=== PATIENT | female | born 1975 | race Caucasian/White ===

== ENCOUNTER 2023-11-17 14:12 | Emergency (ER) | payer BC, SELFPAY ==
[2023-11-17 14:18] VITALS: BP 140/92
--- NOTE | 2023-11-17 17:05 | ED.SKININJ ---
HPI-Injury
General
Chief Complaint: Skin Problem
Source: patient
Exam Limitations: none
Time Seen by Provider: 11/17/23 16:59
Travel History
Have you had any contact with someone who has COVID-19?: No
Do you have any symptoms of coronavirus? Fever > 100 degrees, chills, cough, shortness of breath, sore throat, loss of taste or smell, muscle aches, or headache?: No
History of Present Illness-Injury
Initial Injury comments:
48-year-old female presents with tingling and numb feeling to the right side of the face that started this morning. This is very reminiscent of prior shingles attack she had in the past. She denies any eye discomfort or difficulty seeing that is
new. No significant headache. No unilateral numbness or weakness otherwise. She is healthy otherwise. I was asked to go to the room to evaluate the patient as she was getting ready to leave. She has a mock trial for her son this evening. No
other complaints at this time
Past History
Past History
ED Past Medical History: Asthma and Hypercholesterolemia; Negative CAD or Cancer
ED Past Surgical History: Appendectomy, and Orthopedic
Social History
Tobacco: Former smoker
Alcohol: Occasional
Drug: None
Personal:
Living: with family
Employment: Employed
Family History
Family History: Other (No history of CAD); Negative Early CAD
Phy Exam
Physical Exam
Physical Exam:
General: Well-appearing female no acute respiratory distress
HEENT: Normocephalic atraumatic pupils equal round reactive to light extract motion intact no facial asymmetry sclera noninjected
Neurologic exam: Normal gait conversing appropriately able to raise eyebrows. Good sensation to the face. No drift
Course
Vital Signs
Initial and Last Documented VS:
Initial Vital Signs
Temp Pulse Resp BP Pulse Ox
97.3 F 90 16 140/92 98
11/17/23 14:18 11/17/23 14:18 11/17/23 14:18 11/17/23 14:18 11/17/23 14:18
Last Documented Vital Signs
Temp Pulse Resp BP Pulse Ox
97.3 F 90 16 140/92 98
11/17/23 14:18 11/17/23 14:18 11/17/23 14:18 11/17/23 14:18 11/17/23 14:18
MDM/Problems Addressed
Differential Diagnosis Includes:
Patient with paresthesias to right side of face. Differential could include early shingles however there is no rash. Do not see any evidence of De's palsy. Do not suspect CVA. Patient was about to leave as she has other commitments to make
this evening. Discussed potential for initiating Valtrex as she has had similar symptoms in the past with shingles. She was in agreement with this. She plans on following up with her integration architect. Recommend follow-up here if other symptoms
should arise or symptoms should worsen.
*Critical Care Note
Total Time (30-74mins, 75-104mins- exclusive of procedures): Not Applicable
ED Attending Note
-
Portions of this chart may have been created with voice recognition software.� Occasional wrong word or��sound alike� substitutions may have occurred due to the inherent limitations of voice recognition software.
Discharge Plan
Departure
Patient Disposition: Home (Routine Discharge)
Date of Disposition: 11/17/23
Time of Disposition: 17:08
Patient with high blood pressure during this ER visit?: No
Discharge Problem:
Paresthesia
Instructions: Shingles (DC)
Prescriptions:
New
valacyclovir [Valtrex] 1 gram tablet
1,000 mg PO TID Qty: 21 0RF
No Action
escitalopram oxalate 10 MG tablet
10 mg PO DAILY
rosuvastatin 5 mg Tablet
5 mg PO QPM
Referrals:
Hong Muñoz DO [Family Provider] -
Activity Restrictions/Additional Instructions:
Use Valtrex as directed. Please follow-up with your integration architect as discussed for next available appointment. Please return here for any worsening symptoms for further evaluation if need be.
== END 2023-11-17 17:12 | disposition home or self-care (01) ==
LOC: EMR 14:12
PROVIDERS: EMERGENCY PHYSICIAN Emergency Medicine; FAMILY PHYSICIAN Family Medicine
DX: R20.2 Paresthesia of skin (principal); Z87.891 Personal history of nicotine dependence
CPT/HCPCS: 99283

== ENCOUNTER → 2024-05-11 09:00 | Outpatient (REF) | payer BC, SELFPAY | LOC: RAD 09:00 | PROVIDERS: ATTENDING PHYSICIAN Obstetrics & Gynecology; FAMILY PHYSICIAN Nurse Practitioner Family; REFERRING PHYSICIAN Family Medicine | DX: R10.819 Abdominal tenderness, unspecified site (principal); R10.2 Pelvic and perineal pain; R39.15 Urgency of urination | CPT/HCPCS: 76770; 76830; 76856 ==

== ENCOUNTER → 2024-11-27 12:00 | Outpatient (REF) | payer BC, SELFPAY ==
[2024-11-27 13:37] LABS: % Basophils 0.4 % (0-2); % Eosinophils 2.9 % (0-6); % Immature Granulocytes 0.4 % (0-0.5); % Lymphocytes 28.7 % (20.5-51.1); % Neutrophils 60.6 % (42.2-75.2); Absolute Eosinophils 0.2 10^3/uL (0-0.7); Absolute Lymphocytes 2.2 10^3/uL (1.2-3.4); Absolute Monocytes 0.5 10^3/uL (0.1-0.6); Absolute Neutrophils 4.6 10^3/uL (1.4-6.5); Hematocrit 37.1 % (37.0-47.0); Hemoglobin 12.5 g/dL (12.0-16.0); Mean Corp Hgb Conc. 33.7 g/dL (33.0-37.0); Mean Corpuscular Hgb 30.3 pg (27.0-31.0); Mean Platelet Volume 9.6 fL (7.4-10.4); Nucleated Red Blood Cells % 0 %; Platelet Count 284 10^3/uL (130-400); Red Blood Cell Count 4.12 10^6/uL (4.20-5.40); White Blood Cell Count 7.6 10^3/uL (4.8-10.8)
[2024-11-27 13:47] LABS: Blood Urea Nitrogen 12 mg/dl (7-17); Calcium 9.4 mg/dl (8.4-10.2); Carbon Dioxide 27 mmol/L (22-30); Chloride 102 mmol/L (98-107); Glucose 96 mg/dl (70-99); Potassium 4.4 mmol/L (3.5-5.1); Sodium 136 mmol/L (135-145); eGFR > 60.00
== END ==
LOC: RCS 12:00
PROVIDERS: ATTENDING PHYSICIAN Orthopaedic Surgery Hand Surgery; FAMILY PHYSICIAN Family Medicine
DX: Z01.818 Encounter for other preprocedural examination (principal)
CPT/HCPCS: 36415; 80048; 85025; 93005

== ENCOUNTER → 2025-01-18 07:31 | Outpatient (REF) | payer BC, SELFPAY | LOC: RAD 07:31 | PROVIDERS: ATTENDING PHYSICIAN Family Medicine; FAMILY PHYSICIAN Family Medicine | DX: R22.2 Localized swelling, mass and lump, trunk (principal) | CPT/HCPCS: 76536 ==

== ENCOUNTER → 2025-04-27 07:24 | Outpatient (REF) | payer BC, SELFPAY | LOC: RAD 07:24 | PROVIDERS: ATTENDING PHYSICIAN Nurse Practitioner Family; FAMILY PHYSICIAN Family Medicine | DX: R22.2 Localized swelling, mass and lump, trunk (principal) | CPT/HCPCS: 71260; Q9967 ==

== ENCOUNTER → 2025-05-10 16:27 | Outpatient (REF) | payer BC, SELFPAY | LOC: RAD 16:27 | PROVIDERS: ATTENDING PHYSICIAN Family Medicine | DX: K76.9 Liver disease, unspecified (principal) | CPT/HCPCS: 74170; Q9967 ==

== ENCOUNTER → 2025-08-20 10:27 | Outpatient (REF) | payer BC, SELFPAY | LOC: HWRAD 10:27 | PROVIDERS: ATTENDING PHYSICIAN Obstetrics & Gynecology; FAMILY PHYSICIAN Family Medicine | DX: N92.1 Excessive and frequent menstruation with irregular cycle (principal) | CPT/HCPCS: 76830; 76856 ==

== ENCOUNTER 2025-09-18 05:46 | Day surgery (SDC) | payer BC, SELFPAY ==
[2025-09-18] VITALS (7 sets, daily range): BP systolic 91–141; BP diastolic 54–97; BMI 39.0
[2025-09-18] MEDS: NEURONTIN 100 MG PO (06:30)
[2025-09-18] MEDS: NORMOSOL-R/PLASMALYTE-A 1000 IV (06:30)
[2025-09-18] MEDS: TYLENOL 1000 MG PO (06:31)
--- NOTE | 2025-09-18 07:34 | W.IMMPOSTOP ---
Surgical Immed Post Op Note
-
Primary Surgeon: Dominique Quiñones DO
Assisting Surgeon: none
Pre-op Diagnosis: Perimenopausal abnormal uterine bleeding; menorrhagia
Post-op Diagnosis: same
Procedure Performed: Hysteroscopy D&C
Anesthesia Type: MAC with IV sedation
Specimen / Cultures: 1. endocervical curettings 2. endometrial curettings
Estimated Blood Loss: 1ml
Complications: none
Operative Findings: Uterus sounded to 6cm, endometrial cavity is scarred with adhesions and unable to visualize cavity or tubal ostia.
Counts correct times 2.
Stable to recovery room.
== END 2025-09-18 09:00 | disposition home or self-care (01) ==
LOC: SDS 05:46
PROVIDERS: ATTENDING PHYSICIAN Obstetrics & Gynecology
DX: N92.4 Excessive bleeding in the premenopausal period (principal); N93.8 Other specified abnormal uterine and vaginal bleeding; N92.0 Excessive and frequent menstruation with regular cycle; N85.8 Other specified noninflammatory disorders of uterus; Z98.890 Other specified postprocedural states
CPT/HCPCS: 58558; 86850; 86900; 86901; 88305